=== PATIENT | female | born 1985 | race Caucasian/White ===

== ENCOUNTER 2017-04-21 00:06 | Inpatient (IN) | payer BC ==
[~2017-04-21] VITALS: Ht 160 cm; Wt 77.0 kg
[~2017-04-21 00:06] MED LIST: AUGMENTIN 875-1 EACH PO; METHERGINE0.2 MG PO; METRONIDAZOLE500 MG PO
[2017-04-21] MEDS ORDERED: VITAFOL-OB+DHA1 EACH PO (00:47)
[2017-04-21] MEDS ORDERED: CALCIUM500 MG PO (00:48)
[2017-04-21] MEDS ORDERED: LEVOTHYROXINE50 MCG PO (00:49)
--- NOTE | 2017-04-23 08:41 | PR ---
[facility] [address] [place] [address] Signed PP Progress Notes Datetime Report Generated by CPN: 04/23/2017 08:41 SUBJECTIVE: [id number] Pain: Within normal limits Nausea/Vomiting: Denies Vital Signs: [id number] Vital Signs: Reviewed; Within Normal Limits EXAM: [id number] Cardiovascular: Not Done Respiratory: Not Done Abdomen/Uterus: Abnormal Lochia: Normal Vulva/Perineum: Not Done Breasts: Not Done CVA Tenderness: Not Done Extremities: Normal Incision: Not Applicable Progress: Normal Exam Comments: Fundus firm, NT @ U-1. IMPRESSION/PLAN/PROCEDURES: [id number] Impression: Normal progression Plan: Discharge Procedures: None Progress Notes: Doing well. She is ready for D/C. Signing Physician: Dorothy Craty MD CC: *Electronically Signed* 04/23/17840 DOROTHY CARTY MD PATIENT NAME: ERA ZIMMERMAN PROGRESS NOTE DATE OF : 89 PHYSICIAN: DOROTHY CARTY MD RPT #: [id number] REPORT IS CONFIDENTIAL AND NOT TO BE RELEASED WITHOUT AUTHORIZATION
== END 2017-04-23 11:15 | disposition home or self-care (01) | DRG 775 ==
LOC: FBC 00:06
PROVIDERS: ADMIT Obstetrics & Gynecology
PROC: 10E0XZZ Delivery of Products of Conception, External Approach (ICD-10-PCS; principal; 2017-04-21)
PROC: 10907ZC Drainage of Amniotic Fluid, Therapeutic from Products of Conception, Via Natural or Artificial Opening (ICD-10-PCS; 2017-04-21)
DX: O80 Encounter for full-term uncomplicated delivery (principal); Z37.0 Single live birth; Z3A.39 39 weeks gestation of pregnancy
CPT/HCPCS: 36415; 85027; J2540; J2590